=== PATIENT | male | born 1965 | race African-American/Black ===

== ENCOUNTER 2019-07-19 11:24 | Emergency (ER) | payer SELFPAY ==
[2019-07-19] MEDS ORDERED: KETOROLAC TROMETHAMINE INJ/PF 30 MG/1 ML SDV IV ONE (11:44)
[2019-07-19] MEDS ORDERED: NORMAL SALINE 1000 ML 1,000 ML IV ONE (11:44)
--- NOTE | 2019-07-19 11:44 | ER Document Report ---
ED Medical Screen (RME) - General Chief Complaint: Flank Pain Stated Complaint: URINARY ISSUE Time Seen by Provider: 07/19/19 11:41 Primary Care Provider: SHARI DOWNS MD [Primary Care Provider] - Follow up as needed Mode of Arrival: Ambulatory Information source: Patient Notes: 53-year-old male presented to ED for complaint of left flank pain that started at 3:00 this morning. He states he has had nausea and vomiting x3. He does not have any urinary urgency frequency burning or blood. He states he does have a history of kidney stones and high blood pressure. He states it feels like his last kidney stone. He is alert oriented respirations regular nonlabored speaking in full sentences walks with a even steady gait. He will be treated with Toradol IV fluids and get a CAT scan. I have greeted and performed a rapid initial assessment of this patient. A comprehensive ED assessment and evaluation of the patient, analysis of test results and completion of medical decision making process will be conducted by an additional ED providers. TRAVEL OUTSIDE OF THE [place] IN LAST 30 DAYS: No - Related Data Allergies/Adverse Reactions: No Known Allergies Allergy (Unverified 07/19/19 11:36) Past Medical History - Past Medical History Cardiac Medical History: Reports: Hx Hypertension Past Surgical History: Reports: Hx Abdominal Surgery - surgery at 4 days old for GI repair - Immunizations Hx Diphtheria, Pertussis, Tetanus Vaccination: No Physical Exam - Vital signs Vitals: Temp Pulse Resp BP Pulse Ox 98.8 F 104 H 18 140/84 H 97 07/19/19 11:28 07/19/19 11:28 07/19/19 11:28 07/19/19 11:28 07/19/19 11:28 Course - Vital Signs Vital signs: Temp Pulse Resp BP Pulse Ox 98.8 F 104 H 18 140/84 H 97 07/19/19 11:28 07/19/19 11:28 07/19/19 11:28 07/19/19 11:28 07/19/19 11:28 Doctor's Discharge - Discharge Referrals: SHARI DOWNS MD [Primary Care Provider] - Follow up as needed
--- NOTE | 2019-07-19 11:47 | ER Document Report ---
ED GI/ - General Chief Complaint: Flank Pain Stated Complaint: URINARY ISSUE Time Seen by Provider: 07/19/19 11:41 Primary Care Provider: RORY BLAKE MD [NO LOCAL MD] - Follow up in 3-5 days SHARI DOWNS MD [Primary Care Provider] - Follow up as needed Mode of Arrival: Ambulatory Information source: Patient Notes: Patient presents complaining of left flank pain that started around 3:00 this morning. Patient reports nausea vomiting x3 episodes. Patient denies any urinary symptoms fever or chills. Patient states pain is similar to when he has had kidney stones in the past. TRAVEL OUTSIDE OF THE [place] IN LAST 30 DAYS: No - HPI Patient complains to provider of: Flank pain. No: Dysuria, Testicular pain Onset: This morning Timing/Duration: Sudden Quality of pain: Sharp Pain Level: 5 Location: Left flank Associated symptoms: Nausea, Vomiting. denies: Diarrhea, Dysuria, Fever, Urinary hesitancy, Urinary frequency, Urinary retention, Urinary urgency Exacerbated by: Denies Relieved by: Denies Similar symptoms previously: Yes - kidney stones Recently seen / treated by doctor: No - Related Data Allergies/Adverse Reactions: No Known Allergies Allergy (Unverified 07/19/19 11:36) Home Medications: lisinopril Past Medical History - General Information source: Patient - Social History Smoking Status: Current Some Day Smoker Chew tobacco use (# tins/day): No Frequency of alcohol use: None Drug Abuse: None Occupation: none Family History: Reviewed & Not Pertinent Patient has suicidal ideation: No Patient has homicidal ideation: No - Past Medical History Cardiac Medical History: Reports: Hx Hypertension Renal/ Medical History: Reports: Hx Kidney Stones Past Surgical History: Reports: Hx Abdominal Surgery - surgery at 4 days old for GI repair - Immunizations Hx Diphtheria, Pertussis, Tetanus Vaccination: No Review of Systems - Review of Systems Constitutional: No symptoms reported. denies: Fever EENT: No symptoms reported Cardiovascular: No symptoms reported. denies: Chest pain Respiratory: No symptoms reported. denies: Cough, Short of breath Gastrointestinal: Diarrhea, Nausea, Vomiting. denies: Abdominal pain Genitourinary: Flank pain. denies: Dysuria Male Genitourinary: No symptoms reported Musculoskeletal: Back pain Skin: No symptoms reported Hematologic/Lymphatic: No symptoms reported Neurological/Psychological: No symptoms reported Physical Exam - Vital signs Vitals: Temp Pulse Resp BP Pulse Ox 98.8 F 104 H 18 140/84 H 97 07/19/19 11:28 07/19/19 11:28 07/19/19 11:28 07/19/19 11:28 07/19/19 11:28 - General General appearance: Appears well, Alert In distress: None - HEENT Head: Normocephalic, Atraumatic Eyes: Normal Conjunctiva: Normal Nasal: Normal Mouth/Lips: Normal Mucous membranes: Normal Neck: Normal, Supple. No: Lymphadenopathy - Respiratory Respiratory status: No respiratory distress Chest status: Nontender Breath sounds: Normal. No: Rales, Rhonchi, Stridor, Wheezing Chest palpation: Normal - Cardiovascular Rhythm: Regular Heart sounds: S1 appreciated, S2 appreciated - Abdominal Inspection: Normal Distension: No distension Bowel sounds: Normal Tenderness: Nontender Organomegaly: No organomegaly - Back Back: CVA tenderness - left - Extremities General upper extremity: Normal inspection, Normal strength General lower extremity: Normal inspection, Normal strength - Neurological Neuro grossly intact: Yes Cognition: Normal [place] Coma Scale Eye Opening: Spontaneous [place] Coma Scale Verbal: Oriented [place] Coma Scale Motor: Obeys Commands [place] Coma Scale Total: 15 - Psychological Associated symptoms: Normal affect, Normal mood - Skin Skin Temperature: Warm Skin Moisture: Dry Skin Color: Normal Course - Re-evaluation Re-evalutation: 07/19/19 13:47 Patient resting comfortably. Patient does have leukocytosis of 14,000 although does report vomiting 3 times today and having difficulty keeping fluids down. Patient does have minimal elevation in the BUN and creatinine that could be attributed to dehydration. Consulted with Dr. Blake regarding patient presentation. Dr. Blake advises having patient be discharged home with good return precautions. Dr. Blake advises having patient present directly to [facility] emergency department if he develops fever over 101, intractable pain or intractable vomiting. He recommends having patient follow-up in the office as well. Dr. Blake also request having a KUB be performed to determine whether or not patient has a radiopaque stone. Discussed plan of care with patient, patient verbalized understanding and is agreeable with plan of care. Good return precautions discussed with patient. - Vital Signs Vital signs: Temp Pulse Resp BP Pulse Ox 97.9 F 91 16 135/88 H 99 07/19/19 14:33 07/19/19 14:33 07/19/19 14:33 07/19/19 14:33 07/19/19 14:33 - Laboratory Result Diagrams: 07/19/19 12:07 07/19/19 12:07 Laboratory results interpreted by me: 07/19/19 07/19/19 07/19/19 12:07 12:07 12:07 WBC 14.4 H Seg Neuts % (Manual) 90 H Lymphocytes % (Manual) 3 L Abs Neuts (Manual) 13.0 H Abs Lymphs (Manual) 0.4 L BUN 27 H Creatinine 1.31 H Est GFR (MDRD) Non-Af 57 L Glucose 114 H Total Protein 8.5 H Urine Protein 30 H Urine Ketones TRACE H Urine Blood LARGE H Urine Urobilinogen 2.0 H Labs- Entire Visit 07/19/19 07/19/19 07/19/19 12:07 12:07 12:07 WBC 14.4 H RBC 5.30 Hgb 15.8 Hct 45.4 MCV 86 MCH 29.8 MCHC 34.8 RDW 12.5 Plt Count 247 Lymph % (Auto) Not Reportable [place] % (Auto) Not Reportable Eos % (Auto) Not Reportable Baso % (Auto) Not Reportable Absolute Neuts (auto) Not Reportable Absolute Lymphs (auto) Not Reportable Absolute Monos (auto) Not Reportable Absolute Eos (auto) Not Reportable Absolute Basos (auto) Not Reportable Total Counted 100 Seg Neutrophils % Not Reportable Seg Neuts % (Manual) 90 H Lymphocytes % (Manual) 3 L Monocytes % (Manual) 7 Eosinophils % (Manual) 0 Basophils % (Manual) 0 Abs Neuts (Manual) 13.0 H Abs Lymphs (Manual) 0.4 L Abs Monocytes (Manual) 1.0 Absolute Eos (Manual) 0.0 Abs Basophils (Manual) 0.0 Large Platelets PRESENT Giant Platelets PRESENT Platelet Comment ADEQUATE RBC Morph Comment NORMO-CYTIC/CHROMIC Sodium 139.4 Potassium 4.6 Chloride 101 Carbon Dioxide 30 Anion Gap 8 BUN 27 H Creatinine 1.31 H Est GFR ( Amer) > 60 Est GFR (MDRD) Non-Af 57 L Glucose 114 H Calcium 10.2 Total Bilirubin 0.8 Direct Bilirubin 0.0 Neonat Total Bilirubin Not Reportable Neonat Direct Bilirubin Not Reportable Neonat Indirect Bili Not Reportable AST 27 ALT 17 Alkaline Phosphatase 93 Total Protein 8.5 H Albumin 4.9 Urine Color YELLOW Urine Appearance SLIGHTLY-CLOUDY Urine pH 5.0 Ur Specific [place] 1.026 Urine Protein 30 H Urine Glucose (UA) NEGATIVE Urine Ketones TRACE H Urine Blood LARGE H Urine Nitrite (Reflex) NEGATIVE Urine Bilirubin NEGATIVE Urine Urobilinogen 2.0 H Leukocyte Esterase Rfl NEGATIVE Urine RBC (Auto) >182 Urine WBC (Reflex) 1 Calcium Oxalate Cr Auto FEW Urine Mucus (Auto) FEW Urine Ascorbic Acid NEGATIVE - Diagnostic Test Radiology reviewed: Image reviewed, Reports reviewed Discharge - Discharge Clinical Impression: Ureteral calculus, left, Renal cyst, right Nausea and vomiting Qualifiers: Vomiting type: unspecified Vomiting Intractability: non-intractable Qualified Code(s): R11.2 - Nausea with vomiting, unspecified Condition: Stable Disposition: HOME, SELF-CARE Instructions: Antinausea Medication ([facility]), Intravenous (IV) Fluids ([facility]), Vomiting ([facility]) Additional Instructions: If you develop fever over 101, persistent vomiting, or worsening severe pain you should follow-up directly with the [facility] ER, as this is where Dr. Blake has admitting privileges. Follow-up with Dr. Blake's office for further evaluation, call to make a follow- up appointment Return as needed for any new or worsening symptoms Prescriptions: Tamsulosin HCl [Flomax 0.4 mg Cap.sr] 0.4 mg PO DAILY #7 cap.sr.24h Oxycodone HCl/Acetaminophen [Percocet 5-325 mg Tablet] 1 tab PO ASDIR PRN #15 tablet PRN Reason: Ondansetron [Zofran Odt 4 mg Tablet] 1 tab PO Q6H #15 tab.rapdis Referrals: SHARI DOWNS MD [Primary Care Provider] - Follow up as needed RORY BLAKE MD [NO LOCAL MD] - Follow up in 3-5 days
[2019-07-19 12:22] LABS: HEMATOCRIT 45.4 % (37.9-51.0); HEMOGLOBIN 15.8 g/dL (13.5-17.0); MEAN CORPUSCULAR HEMOGLOBIN 29.8 pg (27.0-33.4); MEAN CORPUSCULAR HGB CONC 34.8 g/dL (32.0-36.0); MEAN CORPUSCULAR VOLUME 86 fl (80-97); PLATELET COUNT 247 10^3/uL (150-450); RED CELL DISTRIBUTION WIDTH 12.5 % (11.5-14.0); WHITE BLOOD COUNT 14.4 10^3/uL (4.0-10.5)
[2019-07-19 12:43] LABS: ABSOLUTE LYMPHOCYTES# (MANUAL) 0.4 10^3/uL (0.5-4.7); BASOPHILS % (MANUAL) 0 % (0-2); EOSINOPHILS % (MANUAL) 0 % (0-6); LYMPHOCYTES % (MANUAL) 3 % (13-45); MONOCYTES % (MANUAL) 7 % (3-13); PLATELET COMMENT ADEQUATE; PLATELET GIANT PRESENT; PLATELET LARGE PRESENT; RBC MORPHOLOGY COMMENT NORMO-CYTIC/CHROMIC; SEGMENTED NEUTROPHILS % (MAN) 90 % (42-78); TOTAL CELLS COUNTED 100
[2019-07-19 12:45] LABS: ALBUMIN 4.9 g/dL (3.5-5.0); ALKALINE PHOSPHATASE 93 U/L (38-126); ANION GAP 8 (5-19); ASPARTATE AMINO TRANSFERASE 27 U/L (17-59); BILIRUBIN,TOTAL 0.8 mg/dL (0.2-1.3); BLOOD UREA NITROGEN 27 mg/dL (7-20); CALCIUM 10.2 mg/dL (8.4-10.2); CARBON DIOXIDE 30 mmol/L (22-30); CHLORIDE 101 mmol/L (98-107); GLUCOSE 114 mg/dL (75-110); POTASSIUM 4.6 mmol/L (3.6-5.0); TOTAL PROTEIN 8.5 g/dL (6.3-8.2)
[2019-07-19 12:56] LABS: APPEARANCE,URINE SLIGHTLY-CLOUDY; BILIRUBIN,URINE NEGATIVE (NEGATIVE); CALCIUM OXALATE CRYSTALS,URINE FEW /HPF; COLOR,URINE YELLOW; GLUCOSE, URINE NEGATIVE (NEGATIVE); KETONES,URINE TRACE mg/dL (NEGATIVE); PROTEIN,URINE 30 mg/dL (NEGATIVE); URINE SPECIFIC GRAVITY 1.026
--- NOTE | 2019-07-19 13:07 | RADIOLOGY REPORT (SQ) ---
EXAM DESCRIPTION: CT ABD/PELVIS NO ORAL OR IV IMAGES COMPLETED DATE/TIME: 07/19/2019 12:46 pm REASON FOR STUDY: Left flank pain COMPARISON: None. TECHNIQUE: CT scan of the abdomen and pelvis performed without intravenous or oral contrast. Images reviewed with lung, soft tissue, and bone windows. Reconstructed coronal and sagittal MPR images revi ewed. All images stored on PACS. All CT scanners at this facility use dose modulation, iterative reconstruction, and/or weight based d osing when appropriate to reduce radiation dose to as low as reasonably achievable (ALARA). [facility]: Dose Right [facility]: CareDose [facility]: Dose Right [facility]: Teradose 4D [facility]: IntuiLab RADIATION DOSE: CT Rad equipment meets quality standard of care and radiation dose reduction techniq ues were employed. CTDIvol: 5.0 mGy. DLP: 244 mGy-cm.mGy. LIMITATIONS: None. FINDINGS: LOWER CHEST: No significant findings. No nodules or infiltrates. NON-CONTRASTED LIVER, SPLEEN, ADRENALS: Evaluation limited by lack of IV contrast. No identified sign ificant masses. PANCREAS: No masses. No peripancreatic inflammatory changes. GALLBLADDER: No identified stones by CT criteria. No inflammatory changes to suggest cholecystitis. RIGHT KIDNEY AND URETER: No suspicious masses. Assessment limited by lack of IV contrast. There is a 4.5 cm simple appearing upper pole cyst. Additional 12 mm lower pole cyst. No significant calcific ations. No hydronephrosis or hydroureter. LEFT KIDNEY AND URETER: No suspicious masses. Assessment limited by lack of IV contrast. There is a 3.5 mm obstructing stone within the proximal left ureter with mild upstream fullness of the collecti ng system and perinephric stranding. No additional definitive stones visualized. There scattered ca lcific densities within the pelvis favored to represent pelvic phleboliths. No hydronephrosis or hy droureter. AORTA AND RETROPERITONEUM: No aneurysm. No retroperitoneal masses or adenopathy. BOWEL AND PERITONEAL CAVITY: No obvious masses or inflammatory changes. No free fluid. APPENDIX: Not visualized. PELVIS, BLADDER, AND ABDOMINAL WALL:No abnormal masses. No free fluid. Bladder normal. BONES: No acute bony abnormality. No suspicious osseous lesions. Lower lumbar facet arthropathy. OTHER: No other significant finding. IMPRESSION: 1. 3.5 mm stone within the proximal left ureter with mild fullness of the upstream pina ecting system. 2. No other evidence of acute intra-abdominal/pelvic process. Chronic findings as above. COMMENT: Quality ID # [id number]: Final reports with documentation of one or more dose reduction techniques (e.g., Automated exposure control, adjustment of the mA and/or kV according to patient size, use of iterative reconstruction technique) TECHNICAL DOCUMENTATION: JOB ID: [id number] 2010 [employer]- All Rights Reserved Reading location - IP/workstation name: [email or web address]
[2019-07-19] MEDS ORDERED: TAMSULOSIN HCL 0.4 MG CAP.SR.24H PO ONE (13:31)
--- NOTE | 2019-07-19 14:15 | RADIOLOGY REPORT (SQ) ---
EXAM DESCRIPTION: KUB/ABDOMEN (SINGLE VIEW) IMAGES COMPLETED DATE/TIME: 07/19/2019 1:59 pm REASON FOR STUDY: eval ureteral stone per urologist COMPARISON: 07/19/2019 NUMBER OF VIEWS: One view. TECHNIQUE: Supine radiographic image of the abdomen acquired. LIMITATIONS: None. FINDINGS: BOWEL GAS PATTERN: Normal bowel gas pattern. No dilated loops. CALCIFICATIONS: Previously described 3.5 mm stone is faintly visualized on the radiograph. SOFT TISSUES: No gross mass or suggestion of organomegaly. HARDWARE: None in the abdomen. BONES: No acute findings. No suspicious lesions. Lower lumbar spondylosis. OTHER: No other significant finding. IMPRESSION: Previously described 3.5 mm left ureteral stone is faintly visualized. No additional ev idence of acute intra-abdominal/pelvic process. TECHNICAL DOCUMENTATION: JOB ID: [id number] 2010 [employer]- All Rights Reserved Reading location - IP/workstation name: [email or web address]
[2019-07-19 14:36] VITALS: BP 135/88
== END 2019-07-19 14:30 | disposition home or self-care (01) ==
LOC: ER 11:24
DX: N20.1 Calculus of ureter (principal); R11.2 Nausea with vomiting, unspecified; Q61.02 Congenital multiple renal cysts; R10.9 Unspecified abdominal pain; R19.7 Diarrhea, unspecified; M54.9 Dorsalgia, unspecified; D72.829 Elevated white blood cell count, unspecified; I10 Essential (primary) hypertension; F17.200 Nicotine dependence, unspecified, uncomplicated
CPT/HCPCS: 99284; 96361; 96374; 36415; 85025; 80053; 81001; 74018; 74176; J1885; J7030